=== PATIENT | male | born 1990 | race Two or more races ===

== ENCOUNTER 2018-07-05 05:45 | Emergency (ER) | payer MEDICAID ==
[~2018-07-05] VITALS: Ht 182.9 cm; Wt 88.5 kg
--- NOTE | 2018-07-05 05:45 | NUR ---
BBSELF C/C ASTHMA ATTACK X 2 DAYS, NO RELIEF FROM ALBUTEROL TREATMENT AT HOME. +WHEEZING +PAIN +TACHYPNIC ON INSPIRATION. PT IS TACHYCARDIC AND HYPERTENSIVE BUT WITH 02 SATURATION 91%. SKIN IS WARM AND INTACT. WILL CONTINUE TO MONITOR FOR ANY CHANGES DURING THE SHIFT.
--- NOTE | 2018-07-05 05:46 | NUR ---
ER MD JONES AT BEDSIDE FOR EVAL
[2018-07-05] MEDS ORDERED: ALBUTEROL FS 2.5 MG/3 ML VIAL.NEB ONE ×2 (05:59→07:47)
[2018-07-05] MEDS ORDERED: IPRATROPIUM NEB FS 0.5 MG/2.5 ML AMPUL.NEB ONE (05:59)
[2018-07-05] MEDS ORDERED: LEVETIRACETAM (500MG) 1,000 MG in IV NS 0.9% 100 ML IV ONE (06:00)
[2018-07-05] MEDS ORDERED: DEXAMETHASONE SOD PHOSPHATE 10 MG/ML VIAL IM ONE (06:00)
[2018-07-05] MEDS ORDERED: IPRATROPIUM NEB FS 0.5 MG/2.5 ML AMPUL.NEB NEB ONE (06:00)
[2018-07-05] MEDS ORDERED: IV NS 0.9% 1,000 ML BAG IV ONE (06:00)
[2018-07-05] MEDS ORDERED: ALBUTEROL FS 2.5 MG/3 ML VIAL.NEB NEB ONE ×2 (06:00→07:30)
[2018-07-05] MEDS ORDERED: DEXAMETHASONE SOD PHOSPHATE 10 MG/ML VIAL ONE (06:03)
--- NOTE | 2018-07-05 06:05 | NUR ---
RT AT BEDSIDE FOR BREATHING TX
--- NOTE | 2018-07-05 06:10 | NUR ---
EKG AT BEDSIDE
--- NOTE | 2018-07-05 06:11 | NUR ---
CHEST XRAY AT BEDSIDE
--- NOTE | 2018-07-05 06:11 | NUR ---
Beatrice gaston in [facility] - 07/05/18 at 0613 by ELENA CHHAYA AT BEDSIDE
[2018-07-05] MEDS ORDERED: DEXAMETHASONE SOD PHOSPHATE 10 MG/ML VIAL IV ONE (06:30)
[2018-07-05 06:40] LABS: BASOPHILS % (AUTO) 0.3 % (0.0-2.0); EOSINOPHILS % (AUTO) 6.1 % (0.0-6.0); HEMATOCRIT 41 % (39-51); HEMOGLOBIN 13.6 g/dL (13.5-17.5); LYMPHOCYTES # (AUTO) 1.3 /CMM (0.8-4.8); LYMPHOCYTES % (AUTO) 11.4 % (20.0-44.0); MEAN CORPUSCULAR HEMOGLOBIN 32 PG (26.0-33.0); MEAN CORPUSCULAR HGB CONC 33 g/dl (31.0-36.0); MEAN CORPUSCULAR VOLUME 98 fL (80-96); MONOCYTES # (AUTO) 1.1 /CMM (0.1-1.30); MONOCYTES % (AUTO) 9.8 % (2.0-12.0); NEUTROPHILS # (AUTO) 8.4 /CMM (1.8-8.9); NEUTROPHILS % (AUTO) 72.4 % (43.0-81.0); PLATELET COUNT (AUTO) 242 /CMM (150-450); RDW COEFFICIENT OF VARIATION 13.6 (11.5-15.0); RED BLOOD CELL COUNT(AUTO) 4.23 MIL/uL (4.5-6.0); WHITE BLOOD COUNT (AUTO) 11.6 K/uL (4.3-11.0)
[2018-07-05 06:45] LABS: CALCIUM, SERUM 8.6 mg/dL (8.5-10.1); CREATININE 1.4 mg/dL (0.6-1.3); POTASSIUM 4.3 mmol/L (3.5-5.1)
[2018-07-05] MEDS ORDERED: IV NS 0.9% 1,000 ML IV ONE (07:15)
[2018-07-05] MEDS ORDERED: Magnesium 1GM/D5W 100ML PREMIX 200 ML IV ONE (07:15)
[2018-07-05] MEDS ORDERED: HYDROCODONE/APAP 5/325MG 1 EACH TABLET ONE (07:29)
[2018-07-05] MEDS ORDERED: Magnesium 1GM/D5W 100ML PREMIX 100 ML IV ONE ×2 (07:29→07:39)
[2018-07-05] MEDS ORDERED: KETOROLAC TROMETHAMINE INJ 30 MG/ML VIAL ONE (07:29)
[2018-07-05] MEDS ORDERED: KETOROLAC TROMETHAMINE INJ 30 MG/ML VIAL IV ONE (07:30)
[2018-07-05] MEDS ORDERED: HYDROCODONE/APAP 5/325MG 1 EACH TABLET PO ONE (07:30)
--- NOTE | 2018-07-05 07:52 | NUR ---
RT AT BEDSIDE FOR BREATHING TX
--- NOTE | 2018-07-05 08:20 | NUR ---
Patient discharged to home in stable condition. Written and verbal after care instructions given. Patient verbalizes understanding of instruction.
--- NOTE | 2018-07-05 08:20 | NUR ---
IV removed. Catheter intact and site benign. Pressure and 4x4 applied to site. No bleeding noted.
[2018-07-05 08:28] VITALS: BP 121/79
== END 2018-07-05 08:29 | disposition home or self-care (01) ==
LOC: ER 05:46
DX: J45.901 Unspecified asthma with (acute) exacerbation (principal); F32.9 Major depressive disorder, single episode, unspecified; F41.9 Anxiety disorder, unspecified; F10.10 Alcohol abuse, uncomplicated
CPT/HCPCS: 36415; 71045; 80048; 85025; 93005; 94640; 94644 ×2; 96365; 96375; 99291; A4606; J1100; J1885; J3475 ×2; J7030; Z7610; J1953

== ENCOUNTER 2020-08-01 19:02 | Emergency (ER) | payer OTHER ==
[~2020-08-01] VITALS: Ht 182.9 cm; Wt 86.2 kg
--- NOTE | 2020-08-01 19:25 | NUR ---
BIBSELF C/O PAIN AND REDDNESS R BUTTOCKS X6 DAYS S/P GLUTE TESTOSTERONE SHOTS. PT AAOX4. RESPIRATIONS EVEN AND UNLABORED. SKIN WARM TO TOUCH AND INTACT. VITAL SIGNS STABLE. PT AFEBRILE. NO ACUTE DISTRESS NOTED AT THIS TIME. WILL CONTINUE TO MONITOR
--- NOTE | 2020-08-01 19:42 | NUR ---
IV INITIATED L FORARM 18G. LABS DRAWN FROM SITE. KARDEX CLERK AT BEDSIDE FOR COLLECTION. IV INTACT AND PATENT, PLACED ON SALINE LOCK
[2020-08-01 19:46] LABS: BASOPHILS # (AUTO) 0.1 /CMM (0.0-0.2); BASOPHILS % (AUTO) 0.6 % (0.0-2.0); EOSINOPHILS % (AUTO) 0.8 % (0.0-6.0); HEMATOCRIT 37 % (39-51); HEMOGLOBIN 12.3 g/dL (13.5-17.5); LYMPHOCYTES % (AUTO) 14.2 % (20.0-44.0); MEAN CORPUSCULAR HGB CONC 33 g/dl (31.0-36.0); MEAN CORPUSCULAR VOLUME 94 fL (80-96); MONOCYTES # (AUTO) 1.2 /CMM (0.1-1.30); NEUTROPHILS # (AUTO) 10.4 /CMM (1.8-8.9); NEUTROPHILS % (AUTO) 75.4 % (43.0-81.0); PLATELET COUNT (AUTO) 251 /CMM (150-450); RED BLOOD CELL COUNT(AUTO) 3.94 MIL/uL (4.5-6.0); WHITE BLOOD COUNT (AUTO) 13.8 K/uL (4.3-11.0)
[2020-08-01 19:59] LABS: CALCIUM, SERUM 9.2 mg/dL (8.5-10.1); CREATININE 0.8 mg/dL (0.6-1.3); POTASSIUM 3.7 mmol/L (3.5-5.1)
[2020-08-01] MEDS ORDERED: IOHEXOL-300 100 ML VIAL IV ONE (20:13)
--- NOTE | 2020-08-01 20:15 | NUR ---
PT BROUGHT BY RADIOLOGY TO CT
--- NOTE | 2020-08-01 20:27 | NUR ---
PT RETURNED FROM CT
[2020-08-01] MEDS ORDERED: LIDOCAINE 1%-EPI 1:100,000 20 ML VIAL ONE (21:13)
[2020-08-01] MEDS ORDERED: MORPHINE SULFATE INJ 4 MG/ML DISP.SYRIN ONE (21:36)
--- NOTE | 2020-08-01 21:42 | NUR ---
DR. HARPER AT BEDSIDE FOR I&D
[2020-08-01] MEDS ORDERED: MORPHINE SULFATE INJ 2 MG/ML DISP.SYRIN IV ONE (22:00)
[2020-08-01 22:32] VITALS: BP 126/79
--- NOTE | 2020-08-01 22:32 | NUR ---
Patient discharged to home in stable condition. Written and verbal after care instructions given. Patient verbalizes understanding of instruction.IV removed. Catheter intact and site benign. Pressure and 4x4 applied to site. No bleeding noted.Pt ambulatory with a steady gait
== END 2020-08-01 22:32 | disposition home or self-care (01) ==
LOC: ER 19:04
DX: L02.31 Cutaneous abscess of buttock (principal); F32.9 Major depressive disorder, single episode, unspecified; F41.9 Anxiety disorder, unspecified; Z98.890 Other specified postprocedural states
CPT/HCPCS: 10061; 36415; 72193; 80048; 85025; 96374; 99285; A6403; A6407; J2270; J3490; Q9967

== ENCOUNTER 2020-08-03 12:08 | Emergency (ER) | payer MEDICAID, OTHER ==
[~2020-08-03] VITALS: Ht 182.9 cm; Wt 86.2 kg
[2020-08-03 12:08] VITALS: BP 152/92
--- NOTE | 2020-08-03 13:35 | NUR ---
EMT AT BEDSIDE FO RWOUND DRESSING.
--- NOTE | 2020-08-03 13:43 | NUR ---
Patient discharged to home in stable condition. Written and verbal after care instructions given. Patient verbalizes understanding of instruction.IV removed. Catheter intact and site benign. Pressure and 4x4 applied to site. No bleeding noted. Pt ambulatory with a steady gait
== END 2020-08-03 13:45 | disposition home or self-care (01) ==
LOC: ER 12:19
DX: L02.31 Cutaneous abscess of buttock (principal); Z98.890 Other specified postprocedural states

== ENCOUNTER 2020-08-18 21:00 | Emergency (ER) | payer MEDICAID ==
[~2020-08-18] VITALS: Ht 182.9 cm; Wt 90.7 kg
[2020-08-18 21:00] VITALS: BP 155/80
== END 2020-08-18 21:44 | disposition home or self-care (01) ==
LOC: ER 21:00
DX: Z48.01 Encounter for change or removal of surgical wound dressing (principal); F32.9 Major depressive disorder, single episode, unspecified; F41.9 Anxiety disorder, unspecified; Z98.890 Other specified postprocedural states

== ENCOUNTER 2020-08-19 15:56 | Emergency (ER) | payer MEDICAID, OTHER ==
[~2020-08-19] VITALS: Ht 182.9 cm; Wt 90.7 kg
[2020-08-19] MEDS ORDERED: LIDOCAINE 1%-EPI 1:100,000 20 ML VIAL ONE (16:39)
--- NOTE | 2020-08-19 16:43 | NUR ---
JOSE WILLS AT BEDSIDE FOR EVAL.
[2020-08-19] MEDS ORDERED: ONDANSETRON HCL/PF 4 MG/2 ML VIAL ONE (16:59)
[2020-08-19] MEDS ORDERED: MORPHINE SULFATE INJ 4 MG/ML DISP.SYRIN ONE (17:00)
[2020-08-19] MEDS ORDERED: MORPHINE SULFATE INJ 2 MG/ML DISP.SYRIN IV ONE (17:00)
[2020-08-19] MEDS: IV NS 0.9% 1,000 ML BAG IV ONE (17:13)
[2020-08-19] MEDS: MORPHINE SULFATE INJ 2 MG/ML DISP.SYRIN IV ONE (17:13)
[2020-08-19] MEDS: ONDANSETRON HCL/PF 4 MG/2 ML VIAL IVP ONE (17:13)
--- NOTE | 2020-08-19 17:13 | NUR ---
IV LINE STARTED BLOOD DRAWN AND SENT TO LAB.
[2020-08-19] MEDS: CLINDAMYCIN 600 MG in IV D5W 100 ML IV ONE (17:20)
[2020-08-19 17:23] LABS: CALCIUM, SERUM 8.3 mg/dL (8.5-10.1); CREATININE 1.3 mg/dL (0.6-1.3); POTASSIUM 3.4 mmol/L (3.5-5.1)
[2020-08-19 17:30] LABS: BASOPHILS % (AUTO) 0.3 % (0.0-2.0); EOSINOPHILS % (AUTO) 1.9 % (0.0-6.0); HEMATOCRIT 35 % (39-51); HEMOGLOBIN 11.7 g/dL (13.5-17.5); LYMPHOCYTES # (AUTO) 1.8 /CMM (0.8-4.8); LYMPHOCYTES % (AUTO) 16.4 % (20.0-44.0); MEAN CORPUSCULAR HGB CONC 33 g/dl (31.0-36.0); MEAN CORPUSCULAR VOLUME 95 fL (80-96); MONOCYTES # (AUTO) 1.3 /CMM (0.1-1.30); MONOCYTES % (AUTO) 11.5 % (2.0-12.0); NEUTROPHILS # (AUTO) 7.7 /CMM (1.8-8.9); NEUTROPHILS % (AUTO) 69.9 % (43.0-81.0); PLATELET COUNT (AUTO) 198 /CMM (150-450); RED BLOOD CELL COUNT(AUTO) 3.69 MIL/uL (4.5-6.0)
[2020-08-19 18:28] VITALS: BP 142/66
--- NOTE | 2020-08-19 18:28 | NUR ---
Patient discharged to home in stable condition. Written and verbal after care instructions given. Patient verbalizes understanding of instruction.IV removed. Catheter intact and site benign. Pressure and 4x4 applied to site. No bleeding noted.
== END 2020-08-19 18:29 | disposition home or self-care (01) ==
LOC: ER 16:14
DX: L02.31 Cutaneous abscess of buttock (principal); R00.0 Tachycardia, unspecified; Z98.890 Other specified postprocedural states
CPT/HCPCS: 10060; 36415; 80048; 85025; 87040 ×2; 96365; 96375; 99284; J2270; J2405; J3490 ×2; J7030; J7060

== ENCOUNTER 2020-08-20 23:16 | Emergency (ER) | payer MEDICAID, OTHER ==
[~2020-08-20] VITALS: Ht 182.9 cm; Wt 90.7 kg
[2020-08-20 23:18] VITALS: BP 132/64
== END 2020-08-21 01:28 | disposition home or self-care (01) ==
LOC: ER 23:16
DX: L02.415 Cutaneous abscess of right lower limb (principal); Z98.890 Other specified postprocedural states; Z60.2 Problems related to living alone
CPT/HCPCS: 99281; A6403; A6407

== ENCOUNTER 2020-08-24 08:22 | Emergency (ER) | payer MEDICAID ==
[~2020-08-24] VITALS: Ht 182.9 cm; Wt 90.7 kg
--- NOTE | 2020-08-24 08:30 | NUR ---
WOUND SEEN AND EXAMINED BY DR. FAJARDO. WOUND CLEANSED, RE-PACKED AND DRESSING CHANGED.
[2020-08-24 08:32] VITALS: BP 140/85
--- NOTE | 2020-08-24 08:46 | NUR ---
brandee Brooks aox4. seen and evaluated by
--- NOTE | 2020-08-24 08:53 | NUR ---
Patient discharged to home in stable condition. Written and verbal after care instructions given. Patient verbalizes understanding of instruction.
== END 2020-08-24 08:54 | disposition home or self-care (01) ==
LOC: ER 08:33
DX: Z48.01 Encounter for change or removal of surgical wound dressing (principal); F32.9 Major depressive disorder, single episode, unspecified; F41.9 Anxiety disorder, unspecified; Z98.890 Other specified postprocedural states; Z60.2 Problems related to living alone